=== PATIENT | male | born 1955 | race Caucasian/White ===

== ENCOUNTER → 2017-05-19 | Day surgery (SDC) | payer OTHER ==
[~2017-05-19] VITALS: Ht 185.4 cm; Wt 110.0 kg
[~2017-05-19] MED LIST: ACETAMINOPHEN 325 MG TAB PO PRN; ASPIRIN 81 MG CHEW ONE; ATORVASTATIN 40 MG TAB PO ONE; ATORVASTATIN 40 MG TAB PO SCH; ATROPINE SULFATE 0.1 MG/ML 5ML SYR IV PRN; FENTANYL CITRATE INJ 50 MCG/1 ML 2 ML VIAL ONE; HEPARIN SOD (PORCINE) 1000 UNIT/ML 10 ML VIAL ONE; MIDAZOLAM HCL 1 MG/ML 2ML VIAL ONE; NITROGLYCERIN/D5W 100MCG/ML 20ML SYR ONE; NiCARDipine HCL INJ 2.5 MG/ML 10 ML AMP ONE; OMEP20CA9 PO; ONDANSETRON INJ 2 MG/ML 2 ML VIAL IV PRN; SODIUM CHLORIDE 0.9% 1000ML 250 ML IV PRN
[2017-05-19 07:29] VITALS: BP 141/95; PULSE 78; TEMP 36.6; O2SAT 97; Ht 185.4 cm; Wt 110.0 kg
--- NOTE | 2017-05-19 08:50 | History & Physical Bridge Note ---
H&P Re-Evaluation Bridge Note: I have examined the patient, reviewed the History & Physical and in the interval since the performance of the History & Physical I have noted the following changes of clinical significance: No changes noted
--- NOTE | 2017-05-19 08:51 | Procedure Note ---
Pre-Mod Sedation Assessment General Date of Moderate Sedation: May 19, 2017. Vital Signs: Vital Signs Past 12 Hours Date Time Temp Pulse Resp B/P (MAP) Pulse Ox O2 Delivery O2 Flow Rate FiO2 05/19/17 07:29 36.6 78 16 141/95 97 Room Air Review Cardiovascular: regular rate, rhythm, no edema, no murmur, normal peripheral pulses Abdomen: normal bowel sounds, non tender, soft Lungs: chest non-tender, lungs clear, normal breath sounds Pre-Sedation Airway Assessment Oral Cavity: Dentures Short Thick Neck: No Hx of Sleep Apnea: No Smoking Status: Never Smoker Mallampati Classification: Class III ASA Classification: Class III Procedure Planning Contraindications-for Mod Sed: None Yes Notes The planned sedation has been discussed with the patient and consent obtained. I have identified the patient, determined the appropriateness of sedation and have assessed the patient immediately prior to the procedure. All medicine(s) and interventions are by my order.
--- NOTE | 2017-05-19 09:38 | Procedure Note ---
Post-Mod Sedation Assessment General Date of Moderate Sedation May 19, 2017. Vital Signs: Vital Signs Past 12 Hours Date Time Temp Pulse Resp B/P (MAP) Pulse Ox O2 Delivery O2 Flow Rate FiO2 05/19/17 07:29 36.6 78 16 141/95 97 Room Air Review - Discharge Criteria Vital Signs Stable: Yes Alert/Oriented/Conversant: Yes Returned to Baseline Mental St: Yes Nausea Absent/Minimal: Yes Pain/Discomfort/Absent/Minimal: Yes Normal/Baseline Respirations: Yes Active Bleeding?: No Pt Received D/C Instructions: N/A Prescriptions Given: None Specific Proced. D/C Criteria Distal Pulses Present (Cardiac: Yes Groin site assessed-Card Cath: Yes Voided Prior To Discharge: Yes Discharged Patients Adult Escort/Transportation: N/A
--- NOTE | 2017-05-19 09:46 | Cardiac Catheterization ---
Procedure Note Procedure Date May 19, 2017. Pre-Procedure Diagnosis Angina, Positive Stress Test AUC Score 8 Post-Procedure Diagnosis Severe CAD Procedure(s) Performed Coronary Angiography, Left Heart Cath Vars[employer] Dr. Soni Bone Char Puller(s) Renetta [employer] CONSULTANT Estimated Blood Loss 5cc Medication(s) Fentanyl, Heparin, Nicardipine, Nitroglycerin, Versed, Lidocaine 1% Summary of Findings 80% ostial LAD with AMAN 2 flow Hemodynamics Rest Ao: 101/75/87 Final Ao: 81637/92 LV: 126/-08/11 Recommendations PCI without planned CABG Specimens None Radiation Exposure (mGy) 1635 Contrast (mls) 60 Anesthesia Moderate sedation. Start 09. End 933 Procedural Complication(s) None Disposition Patient will be transferred [place] [facility] [place] ACC Data Cardiac Status Clinical evaluation leading to the procedure CAD Presntation: Unstable angina, Positive Stress Test Anginal Classification: CCS III Heart Failure: No Stress Echocardiogram: Yes - Positive, Risk/Extent of Ischemia (High) Coronary Anatomy Dominant: Right Left Main (% Stenosis): Normal LAD (% Stenosis): Ostial (80%), Mid (30%), Distal (10%) D1 (% Stenosis): Ostial (20%) Circumflex (% Stenosis): Normal OM1 (% Stenosis): Normal OM2 (% Stenosis): Normal L PL1 (% Stenosis): Normal L PL2 (% Stenosis): Normal RCA (% Stenosis): Proximal (20%) R PDA (% Stenosis): Normal R PL1 (% Stenosis): Normal R PL2 (% Stenosis): Normal Diagnostic Status: Elective Closure Device Percutaneous Entry Location: Radial Closure Device: Mynx Recommendations: PCI without planned CABG Intraprocedure Events Significant Dissection: No Perforation: No
[2017-05-19 11:00] VITALS: BP 106/79; PULSE 70; O2SAT 97
== END | disposition home or self-care (01) ==
LOC: C.CATH 06:52
PROVIDERS: ATTEND Internal Medicine Cardiovascular Disease
DX: I20.9 Angina pectoris, unspecified (principal); I25.10 Atherosclerotic heart disease of native coronary artery without angina pectoris; K21.9 Gastro-esophageal reflux disease without esophagitis; E78.5 Hyperlipidemia, unspecified; Z96.652 Presence of left artificial knee joint

== ENCOUNTER 2017-12-13 10:45 | Emergency (ER) | payer OTHER ==
[~2017-12-13] VITALS: Ht 182.9 cm; Wt 110.5 kg
[~2017-12-13 10:45] MED LIST changes: -ACETAMINOPHEN 325 MG TAB PO PRN; -ASPIRIN 81 MG CHEW ONE; -ATORVASTATIN 40 MG TAB PO ONE; -ATORVASTATIN 40 MG TAB PO SCH; -ATROPINE SULFATE 0.1 MG/ML 5ML SYR IV PRN; -FENTANYL CITRATE INJ 50 MCG/1 ML 2 ML VIAL ONE; -HEPARIN SOD (PORCINE) 1000 UNIT/ML 10 ML VIAL ONE; -MIDAZOLAM HCL 1 MG/ML 2ML VIAL ONE; -NITROGLYCERIN/D5W 100MCG/ML 20ML SYR ONE; -NiCARDipine HCL INJ 2.5 MG/ML 10 ML AMP ONE; -ONDANSETRON INJ 2 MG/ML 2 ML VIAL IV PRN; -SODIUM CHLORIDE 0.9% 1000ML 250 ML IV PRN
[2017-12-13 10:47] VITALS: TEMP 36.6; Ht 182.9 cm; Wt 110.5 kg
--- NOTE | 2017-12-13 11:28 | EMERGENCY ROOM VISIT NOTE ---
History Report prepared by Amrik: David Peralta Under the Supervision of: Dr. Pedro Bo M.D. First contact with patient: 11:07 Chief Complaint: CARDIAC ASSESSMENT Stated Complaint: SOB WHEN WALKING, CHEST PAINS FOR MONTHS History of Present Illness The patient is a 62 year old male who presents to the Emergency Room with complaints of intermittent chest pain for the past 2-3 weeks that is worse with exertion and resolved with resting and lasts 15-20 minutes. He is not currently in any discomfort. He additionally notes that he gets a headache with exertion. The patient states that he had a stent placed in the fall, and he states that he has not had pain since then, and he feels like the pain is similar and was also exertional. The patient states that he is currently on blood thinners, and he occasionally smokes marijuana. He denies smoking cigarettes and drinking alcohol. The patient states that he was supposed to follow up with cardiology in the past, though missed the appointment and has not seen them since. Source of History: patient Onset: 2-3 weeks ago Position: chest Symptom Intensity: no discomfort Timing: intermittent Modifying Factors (Worsening): exertion Modifying Factors (Relieving): rest Associated Symptoms: + headache Review of Systems See HPI for pertinent positives and negatives. A total of ten systems were reviewed and were otherwise negative. Past Medical & Surgical Medical Problems: (1) CAD (coronary artery disease) Surgical Problems: (1) 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 Social History Smoking Status: Never Smoker Alcohol Use: none Marital Status: Occupation Status: disabled Current/Historical Medications Scheduled Aspirin (Aspirin Ec), 81 MG PO DAILY Atorvastatin (Lipitor), 1 TAB PO DAILY Carvedilol (Carvedilol), 1 TAB PO DAILY Clopidogrel Bisulfate (Plavix), 1 TAB PO DAILY Omeprazole (Prilosec), 40 MG PO BID Allergies Coded Allergies: No Known Allergies (Verified , 12/13/17) Physical Exam Vital Signs Date Time Temp Pulse Resp B/P (MAP) Pulse Ox O2 Delivery O2 Flow Rate FiO2 12/13/17 20:00 71 131/87 97 Room Air 12/13/17 18:30 62 14 129/96 96 Room Air 12/13/17 16:32 64 19 112/79 97 Room Air 12/13/17 15:00 65 19 130/92 96 Room Air 5/21/18 13:39 66 12/13/17 12:56 66 16 109/83 98 Room Air 12/13/17 11:25 Room Air 12/13/17 11:24 Room Air 12/13/17 11:03 73 12/13/17 10:47 36.6 76 18 109/75 98 Room Air Physical Exam GENERAL: Awake, alert, well-appearing, in no distress HENT: Normocephalic, atraumatic. Dry mucous membranes otherwise oropharynx unremarkable. EYES: Normal conjunctiva. Sclera non-icteric. NECK: Supple. No nuchal rigidity. FROM. No JVD. RESPIRATORY: Clear to auscultation. CARDIAC: Regular rate, normal rhythm. Extremities warm and well perfused. Pulses equal. ABDOMEN: Soft, non-distended. No tenderness to palpation. No rebound or guarding. No masses. RECTAL: Deferred. MUSCULOSKELETAL: Chest examination reveals no tenderness. The back is symmetrical on inspection without obvious abnormality. There is no CVA tenderness to palpation. No joint edema. LOWER EXTREMITIES: Calves are equal size bilaterally and non-tender. No edema. No discoloration. NEURO: Normal sensorium. No sensory or motor deficits noted. SKIN: No rash or jaundice noted. Medical Decision & Procedures ER Provider Diagnostic Interpretation: Radiology results as stated below per my review and radiologist interpretation: CHEST ONE VIEW PORTABLE HISTORY: Atypical CHEST PAIN COMPARISON: None. FINDINGS: The heart is top normal in size. There are low lung volumes. The lungs are clear. No pleural effusions. No pneumothorax. Moderate hiatus hernia. Lumbar spinal fusion hardware is partially visualized. IMPRESSION: 1. No acute process within the chest. 2. Moderate hiatus hernia. Electronically signed by: Morales Pelletier M.D. 12/13/2017 11:27 AM Dictated Date/Time: 12/13/2017 11:26 AM Laboratory Results 12/13/17 11:11 Red Blood Count 5.03, Mean Corpuscular Volume 88.9, Mean Corpuscular Hemoglobin 31.0, Mean Corpuscular Hemoglobin Concent 34.9, Mean Platelet Volume 9.8, Neutrophils (%) (Auto) 54.8, Lymphocytes (%) (Auto) 38.6, Monocytes (%) (Auto) 5.1, Eosinophils (%) (Auto) 1.1, Basophils (%) (Auto) 0.2, Neutrophils # (Auto) 3.36, Lymphocytes # (Auto) 2.36, Monocytes # (Auto) 0.31, Eosinophils # (Auto) 0.07, Basophils # (Auto) 0.01 12/13/17 11:11 Test 12/13/17 11:11 12/13/17 16:38 White Blood Count 6.12 K/uL (4.8-10.8) Red Blood Count 5.03 M/uL (4.7-6.1) Hemoglobin 15.6 g/dL (14.0-18.0) Hematocrit 44.7 % (42-52) Mean Corpuscular Volume 88.9 fL (80-100) Mean Corpuscular Hemoglobin 31.0 pg (25-34) Mean Corpuscular Hemoglobin Concent 34.9 g/dl (32-36) Platelet Count 225 K/uL (130-400) Mean Platelet Volume 9.8 fL (7.4-10.4) Neutrophils (%) (Auto) 54.8 % Lymphocytes (%) (Auto) 38.6 % Monocytes (%) (Auto) 5.1 % Eosinophils (%) (Auto) 1.1 % Basophils (%) (Auto) 0.2 % Neutrophils # (Auto) 3.36 K/uL (1.4-6.5) Lymphocytes # (Auto) 2.36 K/uL (1.2-3.4) Monocytes # (Auto) 0.31 K/uL (0.11-0.59) Eosinophils # (Auto) 0.07 K/uL (0-0.5) Basophils # (Auto) 0.01 K/uL (0-0.2) RDW Standard Deviation 40.7 fL (36.4-46.3) RDW Coefficient of Variation 12.6 % (11.5-14.5) Immature Granulocyte % (Auto) 0.2 % Immature Granulocyte # (Auto) 0.01 K/uL (0.00-0.02) Anion Gap 8.0 mmol/L (3-11) Est Creatinine Clear Calc Drug Dose 80.0 ml/min Estimated GFR () 71.4 Estimated GFR (Non- 61.6 BUN/Creatinine Ratio 15.8 (10-20) Calcium Level 9.4 mg/dl (8.5-10.1) Magnesium Level 1.9 mg/dl (1.8-2.4) Total Bilirubin 0.3 mg/dl (0.2-1) Direct Bilirubin < 0.1 mg/dl (0-0.2) Aspartate Amino Transf (AST/SGOT) 16 U/L (15-37) Alanine Aminotransferase (ALT/SGPT) 26 U/L (12-78) Alkaline Phosphatase 89 U/L (45-117) Troponin I 0.015 ng/ml (0-0.045) Pro-B-Type Natriuretic Peptide 486 pg/ml (0-900) Total Protein 7.3 gm/dl (6.4-8.2) Albumin 3.6 gm/dl (3.4-5.0) Lipase 86 U/L (73-393) Prothrombin Time 10.6 SECONDS (9.0-12.0) Prothromb Time International Ratio 1.0 (0.9-1.1) Activated Partial Thromboplast Time 30.4 SECONDS (21.0-31.0) Partial Thromboplastin Ratio 1.2 Laboratory results reviewed by me Medications Administered Medications (Trade) Dose Ordered Sig/Valeriy Route Start Time Stop Time Status Last Admin Dose Admin Aspirin (Aspirin Chew) 324 mg NOW STAT PO 12/13/17 12:28 12/13/17 12:30 DC 12/13/17 12:54 324 MG Heparin Sodium/ Dextrose 1 ea Q15M N/A 12/13/17 16:33 12/13/17 21:24 DC 12/13/17 16:33 1 EA Heparin Sodium/ Dextrose (Heparin 25,000 Unit/500ml D5W) 25,000 unit STK-MED ONCE .ROUTE 12/13/17 16:23 12/13/17 16:24 DC 12/13/17 16:26 25,000 UNIT ECG Per My Interpretation Indication: chest pain Rate (beats per minute): 69 Rhythm: normal sinus Findings: RBBB (incomplete), no acute ischemic change, other (normal axis) Comparison ECG Date: 10/15/11 Change: no significant change ED Course 1107: The patient was evaluated in room C10. A complete history and physical exam was performed. 1220: Upon reexamination, the patient was doing okay. I discussed the test results and treatment plan with him. The patient will be evaluated for further management. 1241: I discussed the patient with Justus Singh PA-C - She will evaluate the patient for further treatment. 1403: I talked to Annabelle Page, and she states that the patient does not want to be evaluated by the hospitalist. 1420: I talked with Dr. Burkett - Cardiology, and we discussed the patient's treatment plan. 1502: Dr. Burkett is going to have the patient transferred to [place] to do a catheterization. Medical Decision I reviewed the patient's past medical history, medications, and the nursing notes as described above. Differential diagnosis: Etiologies such as cardiac ischemia, aortic dissection, pulmonary embolism, pneumonia, pneumothorax, musculoskeletal, infections, pericarditis, myocarditis , esophageal rupture, gastrointestinal, as well as others were entertained. The patient is a 62-year-old gentleman with a past medical history of CAD status post high risk LAD occlusion in April/2017 that is post stenting 2 who presents to the emergency department with worsening exertional chest pain of new onset over the past several weeks after being chest pain-free since his stenting per hpi. The patient is relatively well-appearing in no acute distress , afebrile stable vital signs. He denies any resting symptoms and is currently asymptomatic. However he does report that his exertional symptoms are exactly similar to what prompted his last catheterization and stenting. EKG unremarkable without evidence of acute ischemia. The patient's initial troponin is negative. Labs otherwise unremarkable. Given the patient's new onset exertional symptoms, process concerning for unstable angina. Patient was referred for admission however upon initial evaluation by admitting team changed his mind and preferred discharge. I further explained to the patient the risks of leaving AGAINST MEDICAL ADVICE and further noted that if he were to follow-up with his mac developer in the clinic they would likely refer him back to the emergency department. However the patient continued to prefer discharge AMA. I discussed this with Dr. Burkett, [facility] cardiology, agreed that the patient should stay given his high risk occlusion history and evaluated the patient at the bedside. Patient subsequently agreeable for admission and catheterization however preferred transfer to [facility] given his prior catheterization resulted in transfer due to his high risk occlusion. Dr. Burkett arranged transfer after discussions with Dr. Magana, [facility] cardiology, who accepts the patient for direct admission. Will begin heparin drip. Medication Reconcilliation Current Medication List: was personally reviewed by me Blood Pressure Screening Patient's blood pressure: Elevated blood pressure Monitored by the hospitalist Consults Time Called: 1224 Consulting Physician: Justus Singh PA-C Returned Call: 1241 I discussed the patient with Justus Singh PA-C - She will evaluate the patient for further treatment. Additional Consults: Time Called: 1411 Consulted Physician: Dr. Burkett - Cardiology Returned Call: 1420 Additional Comments: I talked with Dr. Burkett - Cardiology, and we discussed the patient's treatment plan. Impression Primary Impression: Unstable angina Critical Care I have personally spent greater than 35 minutes of critical care time in the direct management of this patient. This includes bedside care, interpretation of diagnostic studies, and testing, discussion with consultants, patient, and family members, and other required patient management activities. This 35 minutes is in excess of all separately billable procedures. Scribe Attestation The scribe's documentation has been prepared under my direction and personally reviewed by me in its entirety. I confirm that the note above accurately reflects all work, treatment, procedures, and medical decision making performed by me. Departure Information Dispostion Transfer Acute Care Facility Referrals No Doctor, Assigned (PCP) Patient Instructions My [facility]
[2017-12-13 11:42] LABS: BASO % 0.2 %; BASO ABS # 0.01 K/uL (0-0.2); EOS % 1.1 %; EOS ABS # 0.07 K/uL (0-0.5); HEMATOCRIT 44.7 % (42-52); HEMOGLOBIN 15.6 g/dL (14.0-18.0); IG# 0.01 K/uL (0.00-0.02); LYMPH % 38.6 %; LYMPH ABS # 2.36 K/uL (1.2-3.4); MEAN CELL VOLUME 88.9 fL (80-100); MEAN CORPUSCULAR HGB CONC 34.9 g/dl (32-36); MEAN PLATELET VOLUME 9.8 fL (7.4-10.4); MONO % 5.1 %; MONO ABS # 0.31 K/uL (0.11-0.59); NEUT % 54.8 %; NEUT ABS # 3.36 K/uL (1.4-6.5); PLATELET COUNT 225 K/uL (130-400); RED CELL DISTRIBUTION WIDTH CV 12.6 % (11.5-14.5); RED CELL DISTRIBUTION WIDTH SD 40.7 fL (36.4-46.3); WHITE BLOOD COUNT 6.12 K/uL (4.8-10.8)
[2017-12-13] MEDS ORDERED: ASPI81TA28 PO (11:42)
[2017-12-13] MEDS ORDERED: CLOP1TAB5 PO (11:42)
[2017-12-13] MEDS ORDERED: ATOR-26 PO (11:42)
[2017-12-13] MEDS ORDERED: CRG625 PO (11:42)
[2017-12-13 12:02] LABS: ALBUMIN 3.6 gm/dl (3.4-5.0); ALKALINE PHOSPHATASE 89 U/L (45-117); ALT/SGPT 26 U/L (12-78); AST/SGOT 16 U/L (15-37); BLOOD UREA NITROGEN 20 mg/dl (7-18); CALCIUM 9.4 mg/dl (8.5-10.1); CARBON DIOXIDE 25 mmol/L (21-32); CREATININE 1.26 mg/dl (0.60-1.40); GLUCOSE 103 mg/dl (70-99); LIPASE 86 U/L (73-393); POTASSIUM 4.2 mmol/L (3.5-5.1); SODIUM 140 mmol/L (136-145); TOTAL PROTEIN 7.3 gm/dl (6.4-8.2)
[2017-12-13] MEDS ORDERED: ASPIRIN 81 MG CHEW PO STA (12:28)
--- NOTE | 2017-12-13 14:06 | Progress Note ---
Progress Note Date of Service December 13, 2017. Progress Note Saw patient at the request of the ED for evaluation and possible admission for chest pain. During initial conversation, patient became agitated and expressed that he does not want to stay overnight. Discussed that patient would be leaving against medical advice and that risks include worsening condition and possible . Patient states that he understands risks and still wants to return home. ED physician notified and AMA paperwork will be provided.
--- NOTE | 2017-12-13 15:37 | Cardiology Consultation ---
Cardiology Consultation Date of Consultation: December 13, 2017 History of Present Illness Benedicto Hung is a 62 year old male seen in cardiology consultation per the request of Dr. peacock at the emergency department for the evaluation of unstable angina. The patient states that for the last 3 weeks or so he has been having exertional chest discomfort which mimics his prior anginal equivalent with minimal activity such as ambulating short distances to put gas in his car or when he was cleaning his apartment this weekend with walking up the stairs. He states initially he would rest and the discomfort would improve after about 5 minutes. This has worsened however and he states that it present he finds that he has to rest closer to 10-15 minutes for resolution of his symptoms. At present during my interview with him in the emergency room, room C-10 he is free of chest discomfort. An EKG performed earlier today at 1102 revealed sinus rhythm at 69 bpm with incomplete right bundle branch block, and age undetermined anterior infarction cannot be excluded based on poor R-wave progression in leads V1 to V3. Compared to 10/15/2011, there is been no significant interval change. His troponin is negative 1 and his proBNP level was 486 PG per mL. He received 324 mg of aspirin chewed earlier this afternoon at 12:54 PM. The patient's cardiac history dates back to April 2017. At that time he had initially presented to [facility] with complaint of exertional chest discomfort. He underwent an exercise stress echocardiogram that was markedly positive for ischemia in the LAD territory. He was seen the same day in cardiology consultation by Dr. Martinez of our practice and he was referred for outpatient cardiac catheterization which was subsequently performed by Dr. Tesfaye Soni of our practice on 05/19/17 at [facility]. The diagnostic cardiac catheterization revealed a high-grade ostial LAD stenosis followed by a high-grade mid LAD stenosis. Due to the anatomical concerns of the proximity of the ostial LAD to the bifurcation of the circumflex and left main, the lesion was felt to be anatomically complex and therefore he was transferred to [facility] [place] high risk PCI. He subsequently underwent drug-eluting stents to the ostial LAD and mid LAD and was discharged the next day. The patient did not keep his follow-up cardiology appointment as scheduled with Dr. Martinez. And has not followed up with us in the meantime. He tells me that he felt like he did not need to see us because he was feeling better. He said that however he has maintained his medications including his aspirin and clopidogrel. He believes that within the last 6 months he perhaps is missed a few doses of medications but he has been taking his aspirin and clopidogrel on a regular basis. Review of his electronic records does reveal that he had been receiving refills with most recent refill of his clopidogrel issued by [facility] in August,. Past Medical/Surgical History Problem List: Medical Problems: (1) CAD (coronary artery disease) Surgical Problems: (1) 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 History Social History: Past history of remote substance abuse including marijuana and cocaine use in the remote past but this has not been an issue recently. Family History: Positive for hypertension and diabetes Review Of Systems See above for pertinent positives & negatives. A total of 10 systems reviewed and were otherwise negative. Allergies Coded Allergies: No Known Allergies (Verified , 12/13/17) Medications Reported Home Medications Medications Dose Route/Sig Max Daily Dose Days Date Category Lipitor (Atorvastatin Calcium) 80 Mg Tab 1 Tab PO DAILY 12/13/17 Reported Plavix (Clopidogrel Bisulfate) 75 Mg Tab 1 Tab PO DAILY 12/13/17 Reported Carvedilol 6.25 Mg Tab 1 Tab PO DAILY 12/13/17 Reported Aspirin Ec (Aspirin) 81 Mg Tab 81 Mg PO DAILY 12/13/17 Reported Prilosec (Omeprazole) 20 Mg Cap 40 Mg PO BID 05/03/12 Reported Physical Exam Vital Signs (Last 8hrs): Last 8 Hrs Date Time Temp Pulse Resp B/P (MAP) Pulse Ox O2 Delivery O2 Flow Rate FiO2 12/13/17 13:39 66 12/13/17 12:56 66 16 109/83 98 Room Air 12/13/17 11:25 Room Air 12/13/17 11:24 Room Air 12/13/17 11:03 73 12/13/17 10:47 36.6 76 18 109/75 98 Room Air General Appearance: Alert and Oriented x3. NAD. Head: Normocephalic Atraumatic. Eyes: PERRLA, EOMI, conjunctiva and sclera clear Neck: Supple. No carotid bruits noted. No JVD. No HJD. Respiratory: Breath sounds clear to auscultation bilaterally. No w/r/r. Cardiovascular: Reg rate and rhythm. S1 and S2 noted. No murmurs, rubs, gallops. PMI non displace. Abdomen: Normal bowel sounds, soft nontender. no abdominal bruits. Extremities: No edema, no clubbing or cyanosis. distal pulses 2/4 bilaterally. Neuro: No focal deficits. Psychiatric: Normal affect. Data Last 24 Hours Test 12/13/17 11:11 White Blood Count 6.12 K/uL Red Blood Count 5.03 M/uL Hemoglobin 15.6 g/dL Hematocrit 44.7 % Mean Corpuscular Volume 88.9 fL Mean Corpuscular Hemoglobin 31.0 pg Mean Corpuscular Hemoglobin Concent 34.9 g/dl Platelet Count 225 K/uL Mean Platelet Volume 9.8 fL Neutrophils (%) (Auto) 54.8 % Lymphocytes (%) (Auto) 38.6 % Monocytes (%) (Auto) 5.1 % Eosinophils (%) (Auto) 1.1 % Basophils (%) (Auto) 0.2 % Neutrophils # (Auto) 3.36 K/uL Lymphocytes # (Auto) 2.36 K/uL Monocytes # (Auto) 0.31 K/uL Eosinophils # (Auto) 0.07 K/uL Basophils # (Auto) 0.01 K/uL RDW Standard Deviation 40.7 fL RDW Coefficient of Variation 12.6 % Immature Granulocyte % (Auto) 0.2 % Immature Granulocyte # (Auto) 0.01 K/uL Prothrombin Time 10.2 SECONDS Prothromb Time International Ratio 1.0 Sodium Level 140 mmol/L Potassium Level 4.2 mmol/L Chloride Level 107 mmol/L Carbon Dioxide Level 25 mmol/L Anion Gap 8.0 mmol/L Blood Urea Nitrogen 20 mg/dl Creatinine 1.26 mg/dl Est Creatinine Clear Calc Drug Dose 80.0 ml/min Estimated GFR () 71.4 Estimated GFR (Non- 61.6 BUN/Creatinine Ratio 15.8 Random Glucose 103 mg/dl Calcium Level 9.4 mg/dl Magnesium Level 1.9 mg/dl Total Bilirubin 0.3 mg/dl Direct Bilirubin < 0.1 mg/dl Aspartate Amino Transf (AST/SGOT) 16 U/L Alanine Aminotransferase (ALT/SGPT) 26 U/L Alkaline Phosphatase 89 U/L Troponin I 0.015 ng/ml Pro-B-Type Natriuretic Peptide 486 pg/ml Total Protein 7.3 gm/dl Albumin 3.6 gm/dl Lipase 86 U/L EKG as outlined above. Telemetry reveals stable sinus rhythm. Assessment & Plan Impression: 62-year-old male who presents with symptoms of unstable angina. EKG and cardiac enzymes negative thus far 1. Asymptomatic at rest. Discussion/recommendations: The patient had initially been seen by Dr. peacock in the emergency department as well as by Annabelle Page PA-C of the [facility]. Admission to [facility] for serial cardiac enzymes and further cardiac evaluation had initially been recommended to the patient. The patient however expressed concerns that he would not want to have a cardiac catheterization here and that he was going to leave [facility] against medical advice. I was then asked to assess the patient for further input. Athough his EKG shows no acute ischemia and although his EKG shows no acute ischemia and his troponin was negative 1, his symptoms do mimic his previous angina, and at this point, I think the clinical utility of stress testing is low. I would recommend definitive cardiac catheterization as the patient describes that he is experiencing the exact same symptoms that prompted his last stent. I discussed admitting the patient and proceeding with repeat diagnostic cardiac catheterization at our facility however the patient would have to accept the possibility that he may have a stenosis that would be similar in characteristic to what we found in April 2017 or perhaps even progression of his disease prompting evaluation for bypass surgery, both of which would once again because transfer to [facility]. The patient has a high preference to only have a single cardiac catheterization with definitive treatment. I therefore offered him transfer by ambulance to [facility] for high risk cardiac catheterization and he was agreeable to this. Once again in the past he had an ostial left anterior descending coronary artery lesion that was felt to be technically high risk from a procedural standpoint and that is why he had his intervention at [facility] before. I called and discussed the case with Dr. Anshu Magana who is on-call for cardiology at [facility] and accepted the patient in transfer by ACLS ground. At present, I am going to advance the patient's diet, as he is symptom-free and I do not think he needs a procedure done on an emergent basis today. I do however recommend starting unfractionated heparin and I have ordered this. Case was discussed with Dr. Peacock at length.
[2017-12-13] MEDS ORDERED: HEPARIN 25000 UNIT/500 ML D5W ONE (16:23)
[2017-12-13 17:04] LABS: PTT PATIENT 28.4 SECONDS (21.0-31.0)
[2017-12-13 17:17] LABS: PTT PATIENT 30.4 SECONDS (21.0-31.0)
[2017-12-13 20:00] VITALS: BP 131/87; PULSE 71; O2SAT 97
== END 2017-12-13 20:10 | disposition short-term general hospital (02) ==
LOC: C.EDB 10:46 → C.EDC 20:10
DX: I20.0 Unstable angina (principal); I45.10 Unspecified right bundle-branch block; I25.10 Atherosclerotic heart disease of native coronary artery without angina pectoris; F12.90 Cannabis use, unspecified, uncomplicated; Z95.5 Presence of coronary angioplasty implant and graft; Z79.01 Long term (current) use of anticoagulants; Z79.82 Long term (current) use of aspirin; Z82.49 Family history of ischemic heart disease and other diseases of the circulatory system

== ENCOUNTER 2021-01-07 04:46 | Inpatient (IN) ==
[2021-01-07] MEDS ORDERED: HYDROmorphone INJ 1 MG/ML SYRINGE IV STA (05:41)
[2021-01-07] MEDS ORDERED: ONDANSETRON INJ 2 MG/ML 2 ML VIAL IV STA ×2 (05:41→08:28)
[2021-01-07] MEDS ORDERED: SODIUM CHLORIDE 0.9% 500 ML IV ONE (05:43)
[2021-01-07 06:22] LABS: Basophils # (auto) 0.01 K/uL (0-0.2); Basophils % (auto) 0.1 %; Hematocrit (blood only) 44.5 % (42-52); Hemoglobin 13.8 g/dL (14.0-18.0); Immature Granulocytes # (auto) 0.03 K/uL (0.00-0.02); Immature Granulocytes % (auto) 0.2 %; Lymphocytes # (auto) 0.74 K/uL (1.2-3.4); Lymphocytes % (auto) 5.1 %; Mean Corpuscular Hemoglobin 24.5 pg (25-34); Mean Platelet Volume 9.4 fL (7.4-10.4); Monocytes % (auto) 3.5 %; Neutrophils # (auto) 13.16 K/uL (1.4-6.5); Neutrophils % (auto) 91.1 %; Platelet Count 405 K/uL (130-400); RDW Coefficient of Variation 16.9 % (11.5-14.5); Red Blood Count 5.63 M/uL (4.7-6.1); White Blood Count 14.44 K/uL (4.8-10.8)
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
[2021-01-07 06:36] LABS: Albumin Globulin Ratio 1.1 (0.9-2); Albumin Level 4.2 gm/dl (3.4-5.0); BUN Creatinine Ratio 11.9 (10-20); Bilirubin,Total 0.7 mg/dl (0.2-1); Calcium 9.7 mg/dl (8.5-10.1); Creatinine Clr Calc Pharmacy 100.7 ml/min; Est GFR (African American) 102.2 ml/min; Est GFR (Non-African American) 88.2 ml/min; Globulin 3.9 gm/dl (2.5-4.0); Total Protein 8.1 gm/dl (6.4-8.2)
[2021-01-07] MEDS ORDERED: ceFAZolin 2000MG 2,000 MG/15 ML SYR IV ONE (06:40)
--- NOTE | 2021-01-07 06:40 | History & Physical Bridge Note ---
Date of Service January 07, 2021 History & Physical Bridge Note I have examined the patient, reviewed the History & Physical and in the interval since the performance of the History & Physical I have noted the following changes of clinical significance: no changes noted
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
--- NOTE | 2021-01-07 08:24 | CT Scan Report ---
CT SCAN OF THE ABDOMEN AND PELVIS WITHOUT CONTRAST CLINICAL HISTORY: eval incarcerated inguinal hernia on right COMPARISON STUDY: No previous studies for comparison. TECHNIQUE: CT scan of the abdomen and pelvis was performed from the lung bases to the proximal femurs . Images are reviewed in the axial, sagittal, and coronal planes. IV contrast was not administered fo r this examination. A dose lowering technique was utilized adhering to the principles of ALARA. CT DOSE: 1120.28 mGy.cm FINDINGS: Lower chest: Patchy areas of groundglass attenuation intermixed with septal thickening and is seen pr edominantly within bilateral lower lobes. Evaluation of lung parenchyma is limited due to respiratory motion artifact. Large hiatal hernia is seen which contains distal loop in aspect of the gastric tube. Liver: The unenhanced liver is normal in size, contour, and attenuation. There is no intrahepatic pacheco iary ductal dilatation. Gallbladder: Fluid-filled without evidence of surrounding inflammatory changes. Evaluation is limited due to beam hardening artifact created by orthopedic hardware within spine and this level. Punctate nonobstructive calculus is seen within cystic duct. Spleen: Normal in size and attenuation. Pancreas: Unremarkable. Adrenal glands: Unremarkable. Kidneys: The unenhanced kidneys are normal in size without hydronephrosis. There is no contour deform ing renal mass lesion. No renal calculi are identified. Bowel: Bowel loops are nondilated. Large right inguinal hernia is seen containing loops of fluid-fill ed small bowel which, in upper limits of normal for size and surrounding by fat stranding. Small amou nt of fluid collection is seen on most inferior aspect of the hernia sac. No evidence of pneumatosis is seen at this time. Cecum is collapsed with mild surrounding fat stranding within the right lower quadrant. Diverticulosi s of descending and sigmoid colon is seen. No evidence of diverticulitis. Peritoneum: There is no intraperitoneal free air or abdominal ascites. Vasculature: The abdominal aorta is normal in course and caliber. Adenopathy: None. Pelvic viscera: Urinary bladder is fluid-filled and show normal morphology on this nonenhanced exam. Prostate gland is not significantly enlarged. Skeletal structures: Degenerative changes of the spine. Orthopedic hardware is seen at the T12-L2 lev el. IMPRESSION: 1. Large right inguinal hernia containing loops of small bowel within upper limits of normal for siz e with surrounding inflammatory changes as detailed above. No evidence of pneumatosis. Evaluation is limited due to lack of IV contrast. 2. Mild inflammatory changes surrounding cecum which could be extension of inflammatory process from hernia sac. 3. Large hiatal hernia contains distal looping portion of the gastric tube located above level of he midiaphragm. Repositioning is recommended. 4. Punctate nonobstructive gallstone is seen within cystic duct. 5. Diverticulosis of descending and sigmoid colon. ACT 112: Negative or not required by law. The above report was generated using voice recognition software. It may contain grammatical, syntax o r spelling errors. Electronically signed by: Katherine Johns DO 01/07/2021 8:22 AM
[2021-01-07] MEDS ORDERED: HYDROmorphone INJ 1 MG/ML SYRINGE IV PRN (08:28)
[2021-01-07] MEDS ORDERED: fentaNYL citrate 100 MCG/2 ML VIAL ONE (08:55)
[2021-01-07] MEDS ORDERED: MIDAZOLAM HCL 1 MG/ML 2ML VIAL ONE (08:55)
[2021-01-07] MEDS ORDERED: SUCCINYLCHOLINE CHLORIDE 20 MG/ML 10 ML VIAL IV ONE (08:58)
[2021-01-07] MEDS ORDERED: PROPOFOL IV EMULSION 10 MG/ML 20 ML VIAL IV ONE (08:58)
[2021-01-07] MEDS ORDERED: LIDOCAINE 2% 2 ML VIAL/AMP(20MG/ML) INFIL ONE (08:58)
[2021-01-07] MEDS ORDERED: ROCURONIUM BROMIDE 10 MG/ML 5 ML VIAL IV ONE (08:58)
[2021-01-07] MEDS ORDERED: ceFAZolin 2,000 MG/15 ML IV PUSH IV ONE (09:08)
[2021-01-07] MEDS ORDERED: ATROPINE SULFATE 0.1 MG/ML 10ML SYR IV PRN (09:49)
[2021-01-07] MEDS ORDERED: fentaNYL citrate 100 MCG/2 ML VIAL IV PRN (09:49)
[2021-01-07] MEDS ORDERED: PROMETHAZINE HCL 6.25 MG in SODIUM CHLORIDE 0.9% 50 ML IV PRN (09:49)
[2021-01-07] MEDS ORDERED: ONDANSETRON INJ 2 MG/ML 2 ML VIAL IV PRN ×2 (09:49→14:33)
[2021-01-07] MEDS ORDERED: ePHEDrine sulfate 50 MG/ML AMP IV PRN (09:49)
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
[2021-01-07] MEDS ORDERED: BUPIVACAINE 0.5 % 5 MG/1 ML MPF 30ML VIAL ONE (09:58)
[2021-01-07] MEDS ORDERED: LIDOCAINE 1% LOCAL 20 ML VIAL ONE (09:58)
[2021-01-07] MEDS ORDERED: BACITRACIN OINT 15 GM TUBE ONE (09:58)
[2021-01-07] MEDS ORDERED: HYDROmorphone INJ 1 MG/ML SYRINGE ONE (10:44)
--- NOTE | 2021-01-07 11:43 | Post Operative Brief Note ---
Immediate Post Op Note v1 Date of Surgery January 07, 2021 Pre & Post Diagnosis Operation Date: 01/07/21 08:10 Pre-Op Diagnosis: incarcerated Right inguinal hernia Post-Op Diagnosis: incarcerated Right inguinal hernia I identified the patient and participated in the time-out.: Yes Procedure Operation Date: 01/07/21 08:10 Actual Procedures p Open Right Incarcerated Inguinal Hernia with Mesh(Right) - Ralf Cheema MD Surgeon Ralf Cheema MD Chief Juvenile Probation Officer GREG Fleming Estimated Blood Loss 20 Findings Consistent with Post-Op Diagnosis incarcerated right inguinal hernia, recurrent , Fluids 700ml Specimens hernia sac Drains Hobbs Catheter Anesthesia Type General Complications none Disposition Accompanied Patient To Recovery: No Disposition: Recovery Room Overlapping Procedure I was immediately available: during the entire case.
[2021-01-07] MEDS ORDERED: ONDANSETRON INJ 2 MG/ML 2 ML VIAL ONE (11:44)
[2021-01-07] MEDS ORDERED: NEOSTIGMINE METHYLSULFATE 1 MG/ML 10ML VIAL ONE (11:44)
[2021-01-07] MEDS ORDERED: GLYCOPYRROLATE 0.2 MG/ML VIAL ONE (11:44)
--- NOTE | 2021-01-07 12:56 | Anesthesiology Progress Note ---
Date of Service January 07, 2021 Anesthesia Post Procedure Vital Signs Vital Signs: Temp Pulse Pulse Pulse Resp BP BP 01/07/21 12:43 77 20 153/99 H 01/07/21 12:35 84 20 151/99 H 01/07/21 12:25 85 19 141/102 H 01/07/21 12:15 36.5 C 97 H 14 161/105 H 01/07/21 08:56 36.9 C 91 H 18 146/105 H 01/07/21 08:52 71 16 152/107 H 01/07/21 07:00 70 17 152/99 H 01/07/21 06:30 66 15 160/99 H 01/07/21 06:00 68 28 H 166/109 H 01/07/21 05:57 69 19 176/101 H 01/07/21 05:32 68 17 180/106 H 01/07/21 04:51 36.4 C L 75 18 170/107 H Pulse Ox 01/07/21 12:43 94 01/07/21 12:35 97 01/07/21 12:25 97 01/07/21 12:15 97 01/07/21 08:56 97 01/07/21 08:52 94 01/07/21 07:00 92 01/07/21 06:30 93 01/07/21 06:00 99 01/07/21 05:57 96 01/07/21 05:32 96 01/07/21 04:51 100 Pain Intensity Abdomen: Pain Intensity: 10 Scrotal: Pain Intensity: 3 Transfer of Care Handoff Completed per policy Notes Mental Status: alert / awake / arousable Patient Amnestic to Procedure: Yes Nausea / Vomiting: adequately controlled Pain: adequately controlled Airway Patency, RR, SpO2: stable & adequate BP & HR: stable & adequate Hydration State: stable & adequate Anesthetic Complications: no major complications apparent
[2021-01-07] MEDS ORDERED: MoRPHine SULFATE 4 MG/ML 1 ML CARP\\VIAL IV PRN (14:33)
[2021-01-07] MEDS ORDERED: MoRPHine SULFATE 2 MG/ML CARP IV PRN (14:33)
[2021-01-07] MEDS ORDERED: PHARMACY GLYCEMIC MGMT CONSULT PRN (15:03)
--- NOTE | 2021-01-07 15:12 | Pharmacy Report ---
Pharmacy Glycemic Short Note 2 - Date of Service January 07, 2021 - Glycemic Short BSG Results (Last 24 hours): 01/07/21 05:25 Glucose 114 H OUTPATIENT ANTIDIABETIC REGIMEN: * metformin 500mg BID * A1c: ordered for 01/08/21 ASSESSMENT: * Preop and post op BSGs reasonable at 114 and 111 mg/dL, respectively. Patient does not appear to have received steroids intraop and no ongoing orders currently. * Patient remains NPO a this time. Will order a novolog scale for today and reassess BSG trends tomorrow. PLAN FOR INPATIENT GLYCEMIC CONTROL: * Hold outpatient oral diabetes medications * Basal insulin * hold at this time * Bolus insulin * NovoLog per scale ACHS or Q6hrs while NPO * Goal Range: Low 110 mg/dL - High 140 mg/dL * Correction Factor: 25 mg/dL/unit * Nutritional / Prandial insulin per carb ratio of 1 unit per 8 grams CHO consumed PLAN FOR DISCHARGE: * TBD
[2021-01-07] MEDS ORDERED: GLUCAGON FOR INJ 1 MG VIAL IM PRN (15:30)
[2021-01-07] MEDS ORDERED: CARBOHYDRATES FOR HYPOGLYCEMIA PO PRN (15:30)
[2021-01-07] MEDS ORDERED: DEXTROSE 50% 50 ML SYRINGE IV PRN (15:30)
[2021-01-07] MEDS ORDERED: GLUCOSE 10 TABS/TUBE PO PRN (15:30)
[2021-01-07] MEDS ORDERED: GLUCOSE 40% GEL 15 GM TUBE PO PRN (15:30)
--- NOTE | 2021-01-07 16:12 | Operative Report (OR) ---
DATE OF SURGERY: 01/07/2021. PREOPERATIVE DIAGNOSIS: Incarcerated right inguinal hernia. POSTOPERATIVE DIAGNOSIS: Incarcerated right inguinal hernia. OPERATION: Open repair, right inguinal hernia with mesh. SURGEON: Ralf Cheema MD. UROLOGIST PHYSICIAN: GREG Fleming. ANESTHESIA: General. ESTIMATED BLOOD LOSS: About 20 mL. FINDINGS: Incarcerated right inguinal hernia, recurrence right inguinal hernia. COMPLICATIONS: None. INDICATION OF THE PROCEDURE: This is a 65-year-old gentleman who presented to the ED with a signific ant right inguinal pain and visible bulging and a diagnosis of an incarcerated right inguinal hernia. I recommend to do open repair of right inguinal hernia with mesh. I did talk to the patient about the benefit and risks, alternate procedure. I indicated the risks may include but not limited to suc h as bleeding, infection, hernia recurrence, chronic pain, seroma, hematoma, myocardial infarction, D VT, stroke, and even . The patient understands and signed informed consent and I answered all q uestions. DETAILS OF PROCEDURE: After we identified the patient and verified the procedure, we brought in the patient to the OR, put the patient on the supine position on the OR table. The patient received SCD on bilaterally legs to prevent DVT. Also, the patient received 2 grams Ancef IV for prophylactic ant ibiotic. The patient received general anesthesia without difficulty. Also the patient received a Fol ey catheter insertion for drainage of urine. The patient's abdomen and the lower pelvic area was pre pped and draped in the routine sterile fashion. After timeout, I made about 4.5 cm incision on the r ight inguinal area and opened the subcutaneous layer dissection and reached the hernia sac and we sti ll could not reduce the hernia sac, we had to dissect the hernia neck and once we had dissected the h ernia neck, I opened the hernia neck and then returned to open the hernia sac at this moment, we foun d the patient had hernia contents and there was a small bowel on the omentum. The small bowel color turned pink after we released the hernia neck. Then, we returned the small bowel back to the abdomin al cavity and also we returned the omental fat tissue back to the abdominal cavity. Hemostasis was o btained. Then we found the patient had a hernia size of about 3 x 4 cm. At this moment, we mobilize d the hernia sac with a partial resection of hernia sac. Again, hemostasis obtained, closed the lorrie ia neck by using 2-0 Prolene. Then, we chose an extra-large plug to plug the hernia sac. Then we ch ose 3 x 5 cm mesh to repair the hernia defect. Again, this hernia is a recurrent hernia. The patien t had a hernia repair in the past. Using 2-0 Prolene suture mesh to the conjoined tendon continuous running, another 2-0 Prolene suture the mesh to the right inguinal ligament, continuous running, 2 funk tures meet, together tied, the mesh seated nicely, no tension. Hemostasis was obtained. Closed the external oblique by using 2-0 Vicryl continuous running, closed subcutaneous layer using 2-0 Vicryl c ontinuous running, closed skin by use of 4-0 Vicryl continuous running. Then we put a dressing on. The patient tolerated the procedure well. All instruments, needle and sponge counts were correct x2 at the end of case. Patient transferred to recovery room in stable condition. The hernia sac specim ens sent to pathology and after the procedure I did talk to the patient about the OR findings and pro cedure we did, the patient understands, and the patient will be admitted to the hospital, stay overni t. The server service assistant Evonne is necessary for this procedure, her role is for retraction and exp osure. Job ID: [id number]
[2021-01-07] MEDS: LACTATED RINGER'S 1,000 ML IV SCH ×2 (16:36→23:57)
[2021-01-07] MEDS: INSULIN ASPART 100 UNITS/ML 3 ML PEN SC SCH (18:50)
[2021-01-07] MEDS: ceFAZolin 1000MG 1,000 MG/7.5 ML SYR IV SCH (19:27)
[2021-01-08] MEDS: INSULIN ASPART 100 UNITS/ML 3 ML PEN SC SCH ×2 (00:03→06:24)
[2021-01-08] MEDS: ceFAZolin 1000MG 1,000 MG/7.5 ML SYR IV SCH ×3 (02:40→18:49)
[2021-01-08 06:17] LABS: Basophils # (auto) 0.01 K/uL (0-0.2); Basophils % (auto) 0.1 %; Eosinophils # (auto) 0.01 K/uL (0-0.5); Eosinophils % (auto) 0.1 %; Hemoglobin 11.3 g/dL (14.0-18.0); Immature Granulocytes # (auto) 0.01 K/uL (0.00-0.02); Immature Granulocytes % (auto) 0.1 %; Lymphocytes # (auto) 1.16 K/uL (1.2-3.4); Lymphocytes % (auto) 13.3 %; Mean Corpuscular Hemoglobin 24.3 pg (25-34); Mean Corpuscular Hgb Conc 29.7 g/dL (32-36); Mean Corpuscular Volume 81.7 fL (80-100); Mean Platelet Volume 9.5 fL (7.4-10.4); Monocytes # (auto) 0.69 K/uL (0.11-0.59); Monocytes % (auto) 7.9 %; Neutrophils # (auto) 6.83 K/uL (1.4-6.5); Neutrophils % (auto) 78.5 %; Platelet Count 299 K/uL (130-400); RDW Coefficient of Variation 17.4 % (11.5-14.5); RDW Standard Deviation 52.1 fL (36.4-46.3); Red Blood Count 4.65 M/uL (4.7-6.1); White Blood Count 8.71 K/uL (4.8-10.8)
[2021-01-08 06:36] LABS: BUN Creatinine Ratio 13.9 (10-20); Calcium 9.1 mg/dl (8.5-10.1); Creatinine Clr Calc Pharmacy 118.8 ml/min; Est GFR (African American) 111.3 ml/min; Est GFR (Non-African American) 96.1 ml/min; Potassium 3.5 mmol/L (3.5-5.1)
[2021-01-08 07:37] LABS: Estimated Average Glucose 117 mg/dl; Hemoglobin A1C 5.7 % (4.5-5.6)
[2021-01-08] MEDS: FAMOTIDINE 20 MG in SYRINGE 3 ML IV SCH (08:54)
[2021-01-08] MEDS: LACTATED RINGER'S 1,000 ML IV SCH ×2 (08:54→17:50)
[2021-01-08] MEDS ORDERED: Nursing to Pharmacy Communication SCH (10:30)
--- NOTE | 2021-01-08 11:20 | Surgery Progress Note ---
Date of Service January 08, 2021 Assessment & Plan (1) Incarcerated right inguinal hernia: POD # 1 s/p repair of large incarcerated right recurrent inguinal hernia with mesh. -afebrile, vss - minimal postop pain - minimal NGT output - no return of bowel function yet - adequate urine output Plan: NGT removed, full liquid diet continue pain management as needed encouraged oob and ambulation scds incentive spirometry Dr. Cheema has seen and examined pt, agrees with above. Admission and Anticipated Discharge Date Admission Date: January 07, 2021 Subjective feeling much better little abdominal/groin pain really would like NGT removed, just needs something to drink no nausea or vomiting has not been out of bed yet catheter just removed prior to my evaluation has not urinated on his own yet Physical Exam Constitutional: WD/WN, vitals as above no acute distress and not ill appear ing Respiratory: normal respiratory effort; no respiratory distress and no labored breathing Gastrointestinal (Abdomen): Inspection/Auscultation: abdomen normal to inspection and + hypoactive bowel sounds; abdomen not distended and + abnormal bowel sounds Percussion/Palpation: + abdomen tender (RLQ) and abdomen soft; no guarding and abdomen not rigid Right groin incision covered with dressing which is dry. Tender to palpation. No significant edema in the scrotum Skin: no rashes, warm and dry Psychiatric: A+Ox3, euthymic affect Results & Data ([facility]) Vital Signs (Past 12 Hours) Vital Signs Temp Pulse Resp BP BP Pulse Ox 01/08/21 07:11 37.1 C 73 18 106/70 95 01/08/21 03:30 37.1 C 73 20 115/75 99 01/07/21 23:44 37.1 C 77 18 114/73 99 Laboratory Results 01/08/21 01/08/21 01/08/21 Range/Units 06:16 05:30 05:30 WBC (4.8-10.8) K/uL RBC (4.7-6.1) M/uL Hgb (14.0-18.0) g/dL Hct (42-52) % MCV (80-100) fL MCH (25-34) pg MCHC (32-36) g/dL RDW Std Deviation (36.4-46.3) fL RDW Coeff of Darryl (11.5-14.5) % Plt Count (130-400) K/uL MPV (7.4-10.4) fL Immature Gran % (Auto) % Neut % (Auto) % Lymph % (Auto) % [place] % (Auto) % Eos % (Auto) % Baso % (Auto) % Neut # (Auto) (1.4-6.5) K/uL Lymph # (Auto) (1.2-3.4) K/uL [place] # (Auto) (0.11-0.59) K/uL Eos # (Auto) (0-0.5) K/uL Baso # (Auto) (0-0.2) K/uL Immature Gran # (Auto) (0.00-0.02) K/uL Sodium 140 (136-145) mmol/L Potassium 3.5 (3.5-5.1) mmol/L Chloride 108 H (98-107) mmol/L Carbon Dioxide 26 (21-32) mmol/L Anion Gap 6.0 (3-11) BUN 11 (7-18) mg/dl Creatinine 0.78 (0.6-1.4) mg/dl Est Cr Clr Drug Dosing 118.8 ml/min Est GFR ( Amer) 111.3 ml/min Est GFR (Non-Af Amer) 96.1 ml/min BUN/Creatinine Ratio 13.9 (10-20) Glucose 99 (70-99) mg/dl POC Glucose 95 (70-99) mg/dl Estimat Average Glucose 117 mg/dl Hemoglobin A1c 5.7 H (4.5-5.6) % Calcium 9.1 (8.5-10.1) mg/dl 01/08/21 01/07/21 01/07/21 Range/Units 05:30 23:42 18:49 WBC 8.71 (4.8-10.8) K/uL RBC 4.65 L (4.7-6.1) M/uL Hgb 11.3 L (14.0-18.0) g/dL Hct 38.0 L (42-52) % MCV 81.7 (80-100) fL MCH 24.3 L (25-34) pg MCHC 29.7 L (32-36) g/dL RDW Std Deviation 52.1 H (36.4-46.3) fL RDW Coeff of Darryl 17.4 H (11.5-14.5) % Plt Count 299 (130-400) K/uL MPV 9.5 (7.4-10.4) fL Immature Gran % (Auto) 0.1 % Neut % (Auto) 78.5 % Lymph % (Auto) 13.3 % [place] % (Auto) 7.9 % Eos % (Auto) 0.1 % Baso % (Auto) 0.1 % Neut # (Auto) 6.83 H (1.4-6.5) K/uL Lymph # (Auto) 1.16 L (1.2-3.4) K/uL [place] # (Auto) 0.69 H (0.11-0.59) K/uL Eos # (Auto) 0.01 (0-0.5) K/uL Baso # (Auto) 0.01 (0-0.2) K/uL Immature Gran # (Auto) 0.01 (0.00-0.02) K/uL Sodium (136-145) mmol/L Potassium (3.5-5.1) mmol/L Chloride (98-107) mmol/L Carbon Dioxide (21-32) mmol/L Anion Gap (3-11) BUN (7-18) mg/dl Creatinine (0.6-1.4) mg/dl Est Cr Clr Drug Dosing ml/min Est GFR ( Amer) ml/min Est GFR (Non-Af Amer) ml/min BUN/Creatinine Ratio (10-20) Glucose (70-99) mg/dl POC Glucose 98 102 H (70-99) mg/dl Estimat Average Glucose mg/dl Hemoglobin A1c (4.5-5.6) % Calcium (8.5-10.1) mg/dl 01/07/21 Range/Units 15:12 WBC (4.8-10.8) K/uL RBC (4.7-6.1) M/uL Hgb (14.0-18.0) g/dL Hct (42-52) % MCV (80-100) fL MCH (25-34) pg MCHC (32-36) g/dL RDW Std Deviation (36.4-46.3) fL RDW Coeff of Darryl (11.5-14.5) % Plt Count (130-400) K/uL MPV (7.4-10.4) fL Immature Gran % (Auto) % Neut % (Auto) % Lymph % (Auto) % [place] % (Auto) % Eos % (Auto) % Baso % (Auto) % Neut # (Auto) (1.4-6.5) K/uL Lymph # (Auto) (1.2-3.4) K/uL [place] # (Auto) (0.11-0.59) K/uL Eos # (Auto) (0-0.5) K/uL Baso # (Auto) (0-0.2) K/uL Immature Gran # (Auto) (0.00-0.02) K/uL Sodium (136-145) mmol/L Potassium (3.5-5.1) mmol/L Chloride (98-107) mmol/L Carbon Dioxide (21-32) mmol/L Anion Gap (3-11) BUN (7-18) mg/dl Creatinine (0.6-1.4) mg/dl Est Cr Clr Drug Dosing ml/min Est GFR ( Amer) ml/min Est GFR (Non-Af Amer) ml/min BUN/Creatinine Ratio (10-20) Glucose (70-99) mg/dl POC Glucose 111 H (70-99) mg/dl Estimat Average Glucose mg/dl Hemoglobin A1c (4.5-5.6) % Calcium (8.5-10.1) mg/dl
[2021-01-08] MEDS ORDERED: INSULIN ASPART 100 UNITS/ML 3 ML PEN SC SCH (11:30)
[2021-01-08] MEDS ORDERED: oxyCODONE/ACETAMINOPHEN 5mg/325mg TAB PO PRN (12:49)
[2021-01-08] MEDS: ASPIRIN 325 MG ECTAB PO SCH (15:44)
[2021-01-08] MEDS: CLOPIDOGREL BISULFATE 75 MG TAB PO SCH (15:45)
[2021-01-08] MEDS: PANTOprazole 40 MG TAB PO SCH (15:46)
[2021-01-08] MEDS: metFORMIN HCL 500 MG TAB PO SCH (18:49)
[2021-01-08] MEDS: ACETAMINOPHEN 325 MG TAB PO PRN (20:10)
[2021-01-09] MEDS: ceFAZolin 1000MG 1,000 MG/7.5 ML SYR IV SCH ×2 (02:23→10:34)
[2021-01-09] MEDS: LACTATED RINGER'S 1,000 ML IV SCH (04:07)
[2021-01-09] MEDS: ACETAMINOPHEN 325 MG TAB PO PRN (04:54)
[2021-01-09] MEDS: ASPIRIN 325 MG ECTAB PO SCH (07:32)
[2021-01-09] MEDS: CLOPIDOGREL BISULFATE 75 MG TAB PO SCH (07:32)
[2021-01-09] MEDS: PANTOprazole 40 MG TAB PO SCH (07:32)
[2021-01-09] MEDS: metFORMIN HCL 500 MG TAB PO SCH (07:32)
[2021-01-09] MEDS: FAMOTIDINE 20 MG in SYRINGE 3 ML IV SCH (07:35)
--- NOTE | 2021-01-09 08:26 | Discharge Summary ---
Date of Service January 09, 2021 Admission HPI Per Admitting Provider HPI: pt is a 65 year-old male who presents to ER with 10 hours history of right groin pain with bulging after heavy lifting, the bulging is not reducible, the pain is 6/10, pt came to ER early this morning, pt had one time vomiting at ER, only clear fluid, pt denies fever, no diarrhea, pt had right inguinal hernia repair with mesh in 1969, cardiac stent 4 years ago, pt denies chest pain after stent placed, Principal Diagnosis Incarcerated large right recurrent inguinal hernia containing small bowel Discharge Exam Constitutional WD/WN, vitals as above Respiratory normal respiratory effort; no respiratory distress and no labored breathing Gastrointestinal (Abdomen) Inspection/Auscultation: abdomen normal to inspection; abdomen not distended Percussion/Palpation: + abdomen tender (mild in right lower quadrant) and abdomen soft; no guarding and abdomen not rigid Right groin incision covered with dry dressing, clean/intact tender to palpation mild scrotal edema and bruising on right side of scrotum Skin no rashes, warm and dry Psychiatric A+Ox3, euthymic affect Discharge Data Allergies Allergy/AdvReac Type Severity Reaction Status Date / Time No Known Allergies Allergy Verified 11/04/18 14:55 Consultations 01/07/21 06:04 ED Decision to Admit Stat Procedures Performed Operation Date: 01/07/21 08:10 Actual Procedures p Open Right Incarcerated Inguinal Hernia with Mesh(Right) - Ralf Cheema MD Ordered Studies 01/07/21 06:21 CT abd pelvis wo con Urgent Hospital Course (1) Incarcerated right inguinal hernia: Patient taken to operating room for open right inguinal hernia repair with possible mesh. Patient had a large inguinal hernia containing small bowel and omentum. Small bowel had some inflammation but no evidence of necrosis. Hernia was reduced and repair with mesh plug and patch. Patient tolerated procedure well and was transferred to medical/surgical floor for postoperative care. He was kept nPO, IV fluids, IV morphine prn pain, IV Cefoxitin postop, NGT to LIS, and carr catheter. POD # 1 avss, minimal postop pain, minimal NGT output. NGT was removed and diet advanced to full liquids and carr catheter removed. Home medications including aspirin and plavix were continued. POD # 2 avss, minimal pain, tolerated full liquids. Diet advanced to regular. Patient was discharged home on POD # 2 in stable condition. Total Time Total Time Spent Total Time Spent (In Minutes): 20 Total Time Includes: Examination of the Patient, Discharge Planning and Medication Reconciliation Discharge Plan Discharge Items Patient Disposition: Home - Self-Care Reason For Visit: INCARCERATED RIGHT INGUINAL HERNIA Discharge Diagnosis: Incarcerated recurrent right inguinal hernia containing small bowel Activity: Per Instructions section Lifting: No more than 25 pounds Lifting Comment: for 4 weeks, Bathing: May shower/bathe in 3 days Sexual Activity: After two weeks Exercise/Sports: Rest today Driving/Machine Use: no driving while taking pain medicine, Non-emergency contact: Primary Care Provider and Surgeon Call non-emergency contact if: you have any medication questions, your pain is unusual for you, your pain is concerning for you, you have a fever, your temperature is above 101, your temperature is above 101.5, your wound has increased redness, your wound has increased drainage and your wound pain has increased Follow-up/Referrals: Miladis Colon, [Primary Care Provider] - (follow up DR. Cheema 2 weeks, Agree-I have documented within the medical record.) Diet: Regular Diet Comment: advance diet slowly as tolerated, smaller frequent meals recommend Addtl Attending Provider Instructions: ACTIVITY RECOMMENDATIONS: * Walk as much as possible. * No heavy lifting (>10 lbs.) for 6 weeks. SPECIAL CARE INSTRUCTIONS: * Ice to hernia repair site on and off until bedtime tonight. * May shower in 2 days. Let water run over area and pat dry. * Leave steri strips on for one week and then remove, they may fall off on their own that is okay * Call the surgeon's office with any questions or concerns - (ex. temperature higher than 101 degrees F, excessive bleeding or pain). MEDICATIONS: Resume previous medications unless instructed otherwise by your surgeon. - May alternate extra strength Tylenol and Ibuprofen as needed for mild pain -650 mg Tylenol every 6 hours as needed - Ibuprofen 600 mg every 6 hours as needed (take with food) FOLLOW UP VISIT: If not already scheduled, please call the office to schedule a two week follow- up appointment. Office number Pending Studies at Discharge: No Stand-Alone Forms: My [employer], Smoking Cessation Medications and DC Order Prescriptions: New oxycodone-acetaminophen [Percocet] 5-325 mg tablet 1 tab PO Q6H PRN (Reason: pain) Qty: 20 RF: 0 Continued metformin 500 mg tablet 500 mg PO BID RF: 0 clopidogrel 75 mg tablet 75 mg PO DAILY RF: 0 omeprazole 40 mg capsule,delayed release(DR/EC) 40 mg PO BID RF: 0 aspirin [Zackery Aspirin] 325 mg Tablet 325 mg PO DAILY RF: 0 Discharge Orders: Discharge Order (Routine); Ordered 01/09/21 Ordered By: Ralf Carmen/Other Patient Handouts: Hernia Repair Surgery Admission Data Admit Date/Time: 01/07/21 12:36 Attending Provider: Ralf Cheema Admit Provider: Ralf Cheema Primary Care Provider: Miladis Colon Other Providers: Ralf Cheema Other Interventions: Discharge Summary Assessment (RN) Last Done: 01/09/21 09:11
== END 2021-01-09 10:56 | disposition home or self-care (01) | DRG 352 ==
LOC: ED 04:46 → OR 08:50 → 3E 08:52